=== PATIENT | male | born 1950 | race Caucasian/White ===

== ENCOUNTER 2023-01-18 13:22 | Outpatient (CLI) | payer OTHER, SELFPAY ==
--- NOTE | ~2023-01-18 | US_ITS ---
EXAMINATION: US retroperitoneal limited DATE: 01/18/2023 14:11 CDT INDICATION: Abdominal aortic aneurysm. TECHNIQUE: Grayscale, color Doppler, and pulsed Doppler images of the aorta and common iliac arteries were obtained. COMPARISON: CT dated 02/02/2017. FINDINGS: The proximal aorta measures 2.5 cm greatest sagittal dimension. The mid aorta measures 2.1 cm greates t sagittal dimension. The distal aorta measures 1.8 cm greatest sagittal dimension. The right common internal iliac artery measures 1.2 cm. The left common iliac artery measures 0.9 cm. IMPRESSION: 1. Normal caliber aorta without aneurysm. Reviewed, dictated and finalized at location L.
== END 2023-01-18 13:23 ==
LOC: MICIMG 13:25
DX: I71.40 Abdominal aortic aneurysm, without rupture, unspecified (principal)
CPT/HCPCS: 76775

== ENCOUNTER 2024-01-31 20:16 | Observation (INO) | payer OTHER, SELFPAY ==
[2024-01-31] VITALS (9 sets, daily range): BP systolic 83–112; BP diastolic 57–94; PULSE 46–168; RESP 17–22; TEMP 36.2–36.5; O2SAT 97–100; BMI 33.6
--- NOTE | ~2024-01-31 | XR_ITS ---
EXAMINATION: XR femur LT min 2V, XR tibia fibula LT 2V, XR knee LT min 4V DATE: 01/31/2024 21:34 INDICATION: Left leg injury TECHNIQUE: 1. AP and lateral views of the left femur were obtained on overlapping proximal and distal images. 2. AP, lateral and 2 oblique views of the left knee were obtained. 3. AP and lateral views of the left tibia and fibula were obtained on overlapping proximal and distal images. COMPARISON: None. FINDINGS: Old proximal diaphyseal fracture of the left femur which is fixed with a retrograde intramedullary ro d with distal interlocking screw and which is healed in essentially anatomic alignment there is addit ional fixation of a likely old healed medial malleolar fracture at the left ankle which is fixed with a cerclage wire and 5 pins, also in near-anatomic alignment. No acute fractures identified. 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 Uday-Stieda lesion with heterotopic ossification along the proximal medial colla teral ligament consistent with sequela of chronic medial collateral ligament sprain. And soft tissue swelling with subcutaneous edema throughout the left lower limb beginning at the mid thigh and extend ing through the calf to the ankle. There is increased density to the subcutaneous tissues medial to t he left knee suggestive of a hematoma. IMPRESSION: 1. Internal fixation for old healed fractures of the proximal left femoral diaphysis and of the media l malleolus of the left tibia. No acute osseous abnormality in the left femur, knee or lower leg. Reviewed, dictated and finalized at location A. IMPRESSION: 1. Internal fixation for old healed fractures of the proximal left femoral diap hysis and of the medial malleolus of the left tibia. No acute osseous abnormali ty in the left femur, knee or lower leg. IMPRESSION: 1. Internal fixation for old healed fractures of the proximal left femoral diap hysis and of the medial malleolus of the left tibia. No acute osseous abnormali ty in the left femur, knee or lower leg.
--- NOTE | ~2024-01-31 | XR_ITS ---
EXAMINATION: XR chest 1V portable DATE: 01/31/2024 21:34 INDICATION: Atrial fibrillation with rapid ventricular response TECHNIQUE: frontal view of the chest was obtained. COMPARISON: Chest radiograph dated 04/27/2013 FINDINGS: Asymmetric hazy opacity throughout the left hemithorax relative to the right likely related to some l eftward rotation of the patient. Mild curvilinear discoid atelectasis at the right lung base projecti ng over the right hemidiaphragm no other airspace opacities, pulmonary edema, pleural effusion or pne umothorax. Mild cardiomegaly. Unchanged single lead cardiac pacemaker/defibrillator with lead tip pro jecting over the region of the apex of the right ventricle. There is a second disconnected right vent ricular lead. There is some lucency underlying the right hemidiaphragm without evident colonic interp osition on CT the abdomen and pelvis dated 02/02/2017 which raises some concern for free intraperitone al gas. IMPRESSION: 1. Mild curvilinear right basilar discoid atelectasis. No other acute cardiopulmonary disease. 2. Lucency underlying the right hemidiaphragm of indeterminate etiology which raises some concern for free intraperineal gas. Correlate clinically and would recommend obstructive series with upright and left lateral decubitus views for further evaluation. 3. Cardiomegaly. Reviewed, dictated and finalized at location A. IMPRESSION: 1. Mild curvilinear right basilar discoid atelectasis. No other acute cardiopul monary disease. 2. Lucency underlying the right hemidiaphragm of indeterminate etiology which r aises some concern for free intraperineal gas. Correlate clinically and would r ecommend obstructive series with upright and left lateral decubitus views for f urther evaluation. 3. Cardiomegaly.
[2024-01-31 20:51] LABS: Basophils Absolute Auto 0.1 K/mm3 (0.0-0.1); Basophils Percent Auto 0.5 % (0.2-1.2); Eosinophils Absolute Auto 0.3 K/mm3 (0-0.3); Eosinophils Percent Auto 1.7 % (0-4.4); Hematocrit 45.7 % (42.0-52.0); Hemoglobin 15.4 g/dL (14.0-18.0); Immature Granulocyte Absolute 0.09 K/mm3 (0.00-0.031); Immature Granulocyte Percent A 0.6 % (0-0.5); Lymphocytes Absolute Auto 1.86 K/mm3 (0.9-3.2); Lymphocytes Percent Auto 12.6 % (18.3-44.2); Mean Corpuscular HGB Conc 33.7 g/dl (32-36); Mean Corpuscular Hemoglobin 31.6 pg (26-34); Mean Corpuscular Volume 93.8 fl (80-100); Mean Platelet Volume 11.2 fl (7.4-10.4); Monocytes Absolute Auto 1.1 K/mm3 (0.1-0.6); Monocytes Percent Auto 7.4 % (2.6-8.5); Neutrophils Absolute Auto 11.4 K/mm3 (1.3-6.7); Neutrophils Percent Auto 77.2 % (45.5-73.1); Platelet Count Result 188 k/mm3 (150-375); Red Blood Count 4.87 M/mm3 (4.6-6.20); Red Cell Distribution Width 15.3 % (11.5-14.5); White Blood Count 14.8 K/mm3 (4.5-10.0)
--- NOTE | 2024-01-31 20:56 | PC.NURSE ---
EDP DR. DIANA MIDDLETON 1MG VERSED IN CASE OF CARDIOVERSION. EDP VORB 500ML BOLUS OF NORMAL SALINE IV FLUIDS. ORDER ENTERED BY THIS RN.
[2024-01-31] MEDS: SODIUM CHLORIDE 0.9% IV 500 ML 999 ML IV CONT (20:58)
[2024-01-31] MEDS: MIDAZOLAM HCL (*CRX) 2 MG/2 ML VIAL 1 MG IV PUSH (21:03)
[2024-01-31] MEDS: SODIUM CHLORIDE 0.9% IV 1,000 ML 999 ML IV CONT (21:03)
[2024-01-31 21:04] LABS: INR 1.3; Prothrombin Time 16.6 Seconds (11.1-14.7)
[2024-01-31] MEDS: dilTIAZem HCl INJ 25 MG/5 ML VIAL 20 MG IV PUSH (21:04)
[2024-01-31 21:05] LABS: Partial Thromboplastin Time 26.7 Seconds (22.3-36.8)
--- NOTE | 2024-01-31 21:09 | ECG_ITS ---
SEE SCANNED COPY FOR CONFIRMED REPORT MTDD
[2024-01-31 21:12] LABS: Alanine Aminotransferase 24 U/L (6-50); Albumin Level 4.5 g/dL (3.5-5.1); Alkaline Phosphatase 85 U/L (38-126); Anion Gap 9 mmol/L (4-12); Aspartate Amino Transferase 35 U/L (17-59); Bilirubin,Total 2.1 mg/dL (0.2-1.3); Blood Urea Nitrogen 28 mg/dL (9-20); Calcium 8.7 mg/dL (8.4-10.2); Carbon Dioxide 25 mmol/L (22-30); Chloride 99 mmol/L (98-107); Estimated CRCL calculation 40 ml/min; Estimated Glomerular Filt Rate 35; Glucose 116 mg/dL (65-110); Magnesium 1.6 mg/dL (1.6-2.3); Potassium 4.4 mmol/L (3.4-5.0); Sodium 133 mmol/L (137-145)
--- NOTE | 2024-01-31 21:12 | ED.CHESTPAIN ---
HPI - Chest Pain General Chief Complaint: Chest Pain Stated Complaint: chest pain Time Seen by Provider: 01/31/24 20:23 History of Present Illness HPI narrative: Patient is a 73-year-old male who presents to the emergency department this evening complaining of a syncopal episode. Patient states that he was in his when he syncopized and then fell out of his car and then his ran over his left knee. Patient states that he has put weight on his left knee. Denies hitting his head, denies any loss of consciousness. Patient admits that he does have a history of atrial fibrillation and does take warfarin. Patient denies any chest pain at this time, he states that he does get some pressure from time to time but nothing he is too concerned about. He denies any nausea or vomiting, any abdominal pain, and admits to mild left knee pain. Patient does have a hematoma to the medial aspect of her left leg. No additional symptoms or concerns at this time. Related Data Allergies Allergy/AdvReac Type Severity Reaction Status Date / Time lidocaine Allergy Unknown Verified 10/15/11 12:02 lorazepam Allergy Unknown Verified 10/15/11 12:02 Review of Systems Review of Systems: All systems are reviewed and are negative unless stated otherwise in the HPI. [facility] Family History Family History Father Family history of heart disease in male family member before age 55 Acute myocardial infarction Social History Social History Smoking end date: 09/12/90 Alcohol intake: never Exam Narrative: General: Alert, awake, afebrile, in no acute distress. HEENT: PERRL, no rhinorrhea, no post nasal drip, oropharynx clear. Cardiovascular: Regular rate and rhythm, no murmurs, rubs or gallops, 1+ pitting edema. Respiratory: Clear to auscultation bilaterally, no tachypnea, no wheezing, no rhonchi, no rubs, no respiratory distress. Abdomen: Soft, nontender, nondistended, no rebound, no guarding, no peritoneal signs. Musculoskeletal: Large hematoma to medial left knee, intact left lower extremity hip flexion and knee extension, no deformity noted, patient is neurovascularly intact, compartments soft and compressible. Skin: No rashes or petechia, no signs of infection. Neurological: Alert and oriented to person, place, and time. Follows all commands. No focal deficits, speech is clear and fluent. Course Vital Signs Vital signs: Vital Signs Temperature 97.7 F 01/31/24 20:18 Pulse Rate 46 L 01/31/24 20:18 Respiratory Rate 17 01/31/24 20:18 Blood Pressure 110/94 H 01/31/24 20:18 Pulse Oximetry 98 01/31/24 20:18 Oxygen Delivery Room Air 01/31/24 20:18 Temperature 97.7 F 01/31/24 20:18 Pulse Rate 82 01/31/24 22:02 Respiratory Rate 22 H 01/31/24 22:02 Blood Pressure 109/87 01/31/24 22:02 Pulse Oximetry 100 01/31/24 22:02 Oxygen Delivery Room Air 01/31/24 20:49 MDM - Chest Pain MDM Narrative Medical decision making narrative: The patient was evaluated by myself in the emergency department. History is obtained from patient who is an independent historian and physical exam was performed. External medical records were reviewed at this time. IV was established and pertinent tests were ordered. EKG was obtained which revealed atrial fibrillation with RVR rate of 172 beats per minute. No ST changes, T wave inversions or evidence of acute ischemia within the limitation of the heart rate. EKG was independently interpreted by me and is currently pending official cardiology read. Patient was administered a 500 cc IV fluid bolus with normal saline. At this time, verbal consent was obtained from patient to perform cardioversion. Patient was administered 1 mg of IV Versed cardioverted at 200 joules, however, patient remained in atrial fibrillation. At this time repeat blood pressure did improve to 110 systolic and pa
--- NOTE | 2024-01-31 21:14 | PC.NURSE ---
EDP DR ORTIZ AT BEDSIDE AND VERBAL ORDERED FOR PT TO RECIEVE 1MG VERSED FOR CARDIOVERSION. 1MG VERSED GIVEN IVP. EDP DR. ORTIZ CARDIOVERTED PT W 200J. PT STILL IN AFIB W RATE OF 140S. PT AOX4 BUT DROWSY. EDP DR ORTIZ VORB PT TO RECIEVE 4MG CARDIZEM. CARDIZEM GIVEN IVP. PT HR AFIB 70S. REPEAT EKG ORDERED AND PERFORMED. PT RESPONDING WELL TO TREATMENT.
[2024-01-31 21:24] LABS: NT Pro B Type Natriuretic Pept 2040 pg/mL (19.9-100); Troponin I < 0.012 ng/mL (0.000-0.034)
[2024-01-31] MEDS: dilTIAZem 100 MG/100 ML 100 MG/100 ML BAG IV CONT (21:42)
[2024-01-31 21:55] LABS: Creatine Kinase 277 U/L (55-170)
--- NOTE | 2024-01-31 22:02 | PM.IMHP ---
H&P: HPI History of Present Illness Date/Time: 01/31/24 22:02 Chief Complaint: chest pain she had shortness of breath Narrative: 73-year-old male with history of congestive heart failure history of atrial fibrillation came to emergency room complaining of some dizziness and syncope like symptoms. Patient stated he felt syncope like symptoms and fell out of his car he also ended up hitting his left knee with some hematoma patient currently on warfarin did not hit his head denied loss of consciousness patient was noted of having rapid atrial fib. No chest pain at the time of examination no chest pressure no nausea vomiting diarrhea no hematemesis hemoptysis. Finish denies any urgency frequency of urination no flu-like symptoms. History of ICD pacemaker which was tested a few days ago once patient and updating a door edge at the site of the pacemaker with no injury. Patient was told by the bilingual sales representative and the pacemaker has not seen any changes but there might be a small crack in the device PMFSH Family History Family History Father Family history of heart disease in male family member before age 55 Acute myocardial infarction Social History Social History Smoking end date: 09/12/90 Alcohol intake: never Meds Home Medications and Allergies Allergies Allergy/AdvReac Type Severity Reaction Status Date / Time lidocaine Allergy Unknown Verified 10/15/11 12:02 lorazepam Allergy Unknown Verified 10/15/11 12:02 Vital Signs Vital Signs - 24 hr 01/31/24 20:18 01/31/24 20:49 01/31/24 20:50 Temperature 36.5 C Pulse Rate 46 L 148 H Respiratory Rate 17 17 Blood Pressure 110/94 H 83/57 L Pulse Oximetry 98 97 100 Oxygen Delivery Room Air Room Air 01/31/24 20:50 01/31/24 21:09 01/31/24 21:42 Temperature Pulse Rate 148 H 79 92 Respiratory Rate Blood Pressure 104/68 Pulse Oximetry Oxygen Delivery 01/31/24 21:44 Temperature Pulse Rate 84 Respiratory Rate 20 Blood Pressure 104/68 Pulse Oximetry 97 Oxygen Delivery Exam Narrative: GENERAL: Well appearing, no acute distress. HEAD: Normocephalic, atraumatic. NECK: Supple. No adenopathy, no masses. RESPIRATORY: respirations nonlabored. , no rales, wheezing. CARDIOVASCULAR: IRRegular rate and rhythm without murmurs, ICD in the chest wall . Peripheral pulses 2+ and equal bilaterally. ABDOMINAL: Soft, nontender, nondistended, no hepatosplenomegaly. Normoactive BS. MUSCULOSKELETAL: left knee hematoma and tenderness on exam left knee effusion SKIN: Warm, dry, NEURO: A&O X3. Moves all extremities H&P: Results Labs Labs: Short CBC 01/31/24 Range/Units 20:41 WBC 14.8 H (4.5-10.0) K/mm3 Hgb 15.4 (14.0-18.0) g/dL Hct 45.7 (42.0-52.0) % Plt Count 188 (150-375) k/mm3 BMP 01/31/24 20:41 Sodium 133 L Potassium 4.4 Chloride 99 Carbon Dioxide 25 BUN 28 H Creatinine 1.90 H Glucose 116 H Calcium 8.7 Cardiac Enzymes 01/31/24 01/31/24 Range/Units 20:41 23:40 Total Creatine Kinase 277 H (55-170) U/L Troponin I < 0.012 Cancelled (0.000-0.034) ng/mL Liver Function 01/31/24 Range/Units 20:41 Total Bilirubin 2.1 H (0.2-1.3) mg/dL AST 35 (17-59) U/L ALT 24 (6-50) U/L Alkaline Phosphatase 85 (38-126) U/L Albumin 4.5 (3.5-5.1) g/dL Assessment and Plan Assessment and plan (1) Paroxysmal A-fib: Code(s): I48.0 - Paroxysmal atrial fibrillation Status: Acute (2) CHF (congestive heart failure), NYHA class II: Code(s): I50.9 - Heart failure, unspecified Status: Acute (3) MAMADOU (acute kidney injury): Code(s): N17.9 - Acute kidney failure, unspecified Status: Acute Plan Heart failure with reduced ejection fraction. EKG reviewed Chest x-ray review EF of 20% as per patient Lipid panel, TSH,darell
[2024-01-31] MEDS: ENOXAPARIN 120 MG/0.8 ML SYRINGE 108 MG SUB-Q (22:45)
--- NOTE | 2024-01-31 23:18 | ADMGEN ---
2248 This patient, Jose Alejandro Palomares, was admitted to IMU Room 206-02. Patient/family oriented to hospital policies and general routines including ID bracelet, bed and alarms, visiting hours, pain management, procedures, bathroom and other care routines, personal items, smoking policy, room service/diet, and visiting hours. Information on how to activate the Rapid Response Team has been discussed. Patient/Family are encouraged to report perceived risks to care and to ask questions if they do not understand what they are told or what they should do.
[2024-02-01] VITALS (21 sets, daily range): BP systolic 93–125; BP diastolic 47–71; PULSE 56–85; RESP 18–28; TEMP 36.3–36.6; O2SAT 93–100
[2024-02-01] MEDS: ACETAMINOPHEN 325 MG TABLET PO ×2 (00:28→21:57)
[2024-02-01] MEDS: clonazePAM (*CRX) 0.5 MG TABLET 2 MG PO ×2 (00:30→21:56)
[2024-02-01] MEDS: QUEtiapine FUMARATE 25 MG TABLET PO ×2 (00:30→21:57)
[2024-02-01 00:44] LABS: Basophils Percent Auto 0.3 % (0.2-1.2); Eosinophils Absolute Auto 0.1 K/mm3 (0-0.3); Eosinophils Percent Auto 0.7 % (0-4.4); Hemoglobin 12.9 g/dL (14.0-18.0); Immature Granulocyte Absolute 0.07 K/mm3 (0.00-0.031); Immature Granulocyte Percent A 0.6 % (0-0.5); Immature Platelet Fraction Pct 8.9 % (0.9-11.2); Lymphocytes Absolute Auto 1.32 K/mm3 (0.9-3.2); Mean Corpuscular HGB Conc 33.1 g/dl (32-36); Mean Corpuscular Hemoglobin 31.5 pg (26-34); Mean Corpuscular Volume 95.4 fl (80-100); Mean Platelet Volume 11.5 fl (7.4-10.4); Monocytes Absolute Auto 0.8 K/mm3 (0.1-0.6); Monocytes Percent Auto 6.8 % (2.6-8.5); Neutrophils Absolute Auto 9.6 K/mm3 (1.3-6.7); Neutrophils Percent Auto 80.6 % (45.5-73.1); Platelet Count Result 137 k/mm3 (150-375); Red Blood Count 4.09 M/mm3 (4.6-6.20)
[2024-02-01 00:57] LABS: Alanine Aminotransferase 21 U/L (6-50); Albumin Level 3.6 g/dL (3.5-5.1); Alkaline Phosphatase 72 U/L (38-126); Anion Gap 6 mmol/L (4-12); Aspartate Amino Transferase 28 U/L (17-59); Bilirubin,Total 2.2 mg/dL (0.2-1.3); Blood Urea Nitrogen 26 mg/dL (9-20); Calcium 8.1 mg/dL (8.4-10.2); Carbon Dioxide 22 mmol/L (22-30); Chloride 104 mmol/L (98-107); Cholesterol 133 mg/dL (0-200); Estimated CRCL calculation 54 ml/min; Estimated Glomerular Filt Rate 50; Glucose 107 mg/dL (65-110); HDL Direct 37 mg/dL; Potassium 3.9 mmol/L (3.4-5.0); Sodium 132 mmol/L (137-145); Triglycerides 63 mg/dL (<150)
[2024-02-01 01:06] LABS: Troponin I < 0.012 ng/mL (0.000-0.034)
[2024-02-01 01:07] LABS: LDL Cholesterol Direct 77 mg/dL
[2024-02-01 01:24] LABS: Free T4 Free Thyroxine 1.26 ng/mL (0.78-2.19)
[2024-02-01 04:16] LABS: Troponin I < 0.012 ng/mL (0.000-0.034)
[2024-02-01] MEDS: METOPROLOL SUCCINATE EXT REL 50 MG TABCR PO (09:44)
[2024-02-01] MEDS: PANTOPRAZOLE 40 MG TABLET PO (09:44)
[2024-02-01] MEDS: ATORVASTATIN 40 MG TABLET PO (09:45)
[2024-02-01] MEDS: ENOXAPARIN 120 MG/0.8 ML SYRINGE 108 MG SUB-Q ×2 (09:45→21:57)
--- NOTE | 2024-02-01 11:52 | PM.CNCAR ---
Assessment and Plan Assessment and plan (1) Ischemic cardiomyopathy: Code(s): I25.5 - Ischemic cardiomyopathy Status: Acute Plan This is a 73-year-old man with chronic coronary artery disease, previous myocardial infarction reportedly low ejection and previous percutaneous revascularization he also reports a history of chronic atrial fibrillation and a chronically implanted biventricular ICD with all of this is followed at [facility]. He entered this hospital after having a syncopal episode yesterday falling by his mailbox. Apparently he was tachycardic with a heart rate in the 170s which was shocked electrically in the emergency room. Unfortunately there were no rhythm strips of this kept on the chart for my review. Given his substrate of a significant ischemic cardiomyopathy it is most likely that his tachycardia risk represented VT which was terminated electrically. I am not sure how his ICD is programmed as to why the device did not treat his arrhythmia prior to being cardioverted in the ED. he is currently in atrial fibrillation with a controlled response and his atrial fibrillation is chronic by his history. I would recommend continuing his current guideline directed medical therapy, try to figure out what his dose of Entresto is an order that as well. I will ask for the [employer] inbound call center representative to come here and interrogate the device to provide some information as to the programming of his device as to why it did not terminate VT if that was the arrhythmia yesterday. We will await that information but at this point he does not need any additional cardiac evaluation here. If electrophysiology input becomes necessary he should be transferred to his established physicians at [facility] who been treating him for many years Hair Augustin MD [facility] History of Present Illness History of Present Illness Consult date/time: 02/01/24 11:52 Reason For Visit: AFib RVR Narrative: This is a 73-year-old man I am seeing at the request of the hospitalist the stated reason for consultation is AFib with rapid ventricular response. Patient is unknown to me and unknown to physicians here at [facility] before this. He was brought to the hospital yesterday apparently because of a syncopal episode that occurred outside of his home that resulted in injury to his leg and some hematoma in his thigh. The patient states that he was in his car coming home from running errands he stopped his cart the mailbox he left the door open to stay step out and get his mail. He says shortly after that he had a fall and lost consciousness he thinks briefly. There were no witnesses to this event he woke up spontaneously and was concerned about his leg in terms of the injury. He was brought to the hospital for further evaluation. According to the chart that is in the emergency room he was felt to be in atrial fibrillation with a rapid heart rate in the 170s. He was electrically cardioverted and the resultant rhythm was atrial fibrillation with a controlled ventricular response. He felt better after that and was admitted to the hospital. He has no current complaints at this time. He has a long history of ischemic heart disease and receives his cardiology care at [facility]. He states that his history includes a significant myocardial infarction in the past, a low ejection fraction and he thinks about 5 or 6 previously deployed coronary stents. He has chronic atrial fibrillation he states that physicians at that hospital in the past have try to restore sinus rhythm which was unsuccessful. He sees both cellar pumper and carbonator at that institution. He has a chronically implanted [employer] biventricular ICD. He says he was in his carbonator office for a follow-up visit within the last several days and was told that things were stable. He is being maintained on guideline directed medical therapy for his ischemic ca
[2024-02-01] MEDS: MORPHINE SULFATE (*CRX) 2 MG/ML INJ IV PUSH (13:52)
--- NOTE | 2024-02-01 18:25 | PM.IMPN ---
Progress Note: A&P Assessment and Plan (1) Paroxysmal A-fib: Code(s): I48.0 - Paroxysmal atrial fibrillation Status: Acute (2) CHF (congestive heart failure), NYHA class II: Code(s): I50.9 - Heart failure, unspecified Status: Acute (3) MAMADOU (acute kidney injury): Code(s): N17.9 - Acute kidney failure, unspecified Status: Acute Plan Heart failure with reduced ejection fraction. EKG reviewed Chest x-ray review EF of 20% as per patient Lipid panel, TSH,liver function test, TTE in a.m. cardiology consult Optimize Philip inhibitors and beta-blockers Daily weights monitor BNP Antiplatelet & Statin therapy Loop diuretics as indicate Patient educated about titrating diuretics at home based on weight blood pressure and symptoms. Optimize blood pressure < 130/80 Fall risk assessment Pneumonia and flu vaccine advised atrial fibrillation with RVR currently on Cardizem drip 5 mics. Monitor blood pressure. Continue anticoagulation with warfarin monitor PT INR. 1.3. Will start patient on full dose of Lovenox. Platelet count 188 Cardiology consulted present Check TSH. Optimize beta-rk. Monitor troponins Cardiology consulted: Apparently he was tachycardic with a heart rate in the 170s which was shocked electrically in the emergency room.? Unfortunately there were no rhythm strips of this kept on the chart for my review.? Given his substrate of a significant ischemic cardiomyopathy it is most likely that his tachycardia risk represented VT which was terminated electrically.? I am not sure how his ICD is programmed as to why the device did not treat his arrhythmia prior to being cardioverted in the ED. he is currently in atrial fibrillation with a controlled response and his atrial fibrillation is chronic by his history.? I would recommend continuing his current guideline directed medical therapy, try to figure out what his dose of Entresto is an order that as well.? I will ask for the [employer] pharmaceutical service representative to come here and interrogate the device to provide some information as to the programming of his device as to why it did not terminate VT if that was the arrhythmia yesterday.? We will await that information but at this point he does not need any additional cardiac evaluation here.?? MAMADOU cause due to diuretic use and dehydration serum creatinine 1.9 nephrology consulted Avoid nephrotoxic drugs. Monitor antihypertensive drug therapy. Avoid NSAIDs. Routine CMP monitoring GFR. Monitor electrolytes especially potassium. Pharmacy does medications. left knee effusion and hematoma ice and leg elevation. Monitor for any infection. Early ambulation Time Spent With Patient Time with patient: 25 - 35 minutes Subjective Date/time seen: 02/01/24 18:25 Interval history: Seen and examined; being evaluated and managed for tachyarrhythmias and A-fib Exam Narrative: GENERAL: Well appearing, no acute distress. HEAD: Normocephalic, atraumatic. NECK: Supple. No adenopathy, no masses. RESPIRATORY: respirations nonlabored. , no rales, wheezing. CARDIOVASCULAR: IRRegular rate and rhythm without murmurs, ICD in the chest wall . Peripheral pulses 2+ and equal bilaterally. ABDOMINAL: Soft, nontender, nondistended, no hepatosplenomegaly. Normoactive BS. MUSCULOSKELETAL: left knee hematoma and tenderness on exam left knee effusion SKIN: Warm, dry, NEURO: A&O X3. Moves all extremities Objective Data Vital Signs Vital Signs: Vital Signs - 24 hr 01/31/24 20:18 01/31/24 20:49 01/31/24 20:50 Temperature 97.7 F Pulse Rate 46 L 148 H Respiratory Rate 17 17 Blood Pressure 110/94 H 83/57 L Pulse Oximetry 98 97 100 Oxygen Delivery Room Air Room Air 01/31/24 20:50 01/31/24 21:09 01/31/24 21:42 Temperature Pulse Rate 148 H 79 92 Respiratory Rate Blood Pressure 104/68 Pulse Oximetry Oxygen Delivery
[2024-02-02] VITALS (12 sets, daily range): BP systolic 110–125; BP diastolic 65–82; PULSE 82–104; RESP 18–20; TEMP 36.1–36.8; O2SAT 97–100
[2024-02-02 04:45] LABS: Basophils Percent Auto 0.6 % (0.2-1.2); Eosinophils Absolute Auto 0.3 K/mm3 (0-0.3); Hematocrit 36.2 % (42.0-52.0); Immature Granulocyte Absolute 0.03 K/mm3 (0.00-0.031); Immature Granulocyte Percent A 0.4 % (0-0.5); Immature Platelet Fraction Pct 9.6 % (0.9-11.2); Lymphocytes Absolute Auto 2.34 K/mm3 (0.9-3.2); Lymphocytes Percent Auto 32.6 % (18.3-44.2); Mean Corpuscular HGB Conc 33.1 g/dl (32-36); Mean Corpuscular Hemoglobin 31.3 pg (26-34); Mean Corpuscular Volume 94.5 fl (80-100); Monocytes Absolute Auto 0.6 K/mm3 (0.1-0.6); Monocytes Percent Auto 7.8 % (2.6-8.5); Neutrophils Absolute Auto 3.9 K/mm3 (1.3-6.7); Neutrophils Percent Auto 54.6 % (45.5-73.1); Platelet Count Result 116 k/mm3 (150-375); Red Blood Count 3.83 M/mm3 (4.6-6.20); Red Cell Distribution Width 14.9 % (11.5-14.5); White Blood Count 7.2 K/mm3 (4.5-10.0)
[2024-02-02 05:03] LABS: Alanine Aminotransferase 21 U/L (6-50); Albumin Level 3.6 g/dL (3.5-5.1); Alkaline Phosphatase 85 U/L (38-126); Anion Gap 6 mmol/L (4-12); Aspartate Amino Transferase 28 U/L (17-59); Bilirubin,Total 1.5 mg/dL (0.2-1.3); Blood Urea Nitrogen 18 mg/dL (9-20); Calcium 8.7 mg/dL (8.4-10.2); Carbon Dioxide 21 mmol/L (22-30); Chloride 108 mmol/L (98-107); Estimated CRCL calculation 82 ml/min; Estimated Glomerular Filt Rate > 60; Glucose 88 mg/dL (65-110); Potassium 3.6 mmol/L (3.4-5.0); Sodium 135 mmol/L (137-145)
[2024-02-02] MEDS: ENOXAPARIN 120 MG/0.8 ML SYRINGE 108 MG SUB-Q (10:10)
[2024-02-02] MEDS: PANTOPRAZOLE 40 MG TABLET PO (10:11)
[2024-02-02] MEDS: ATORVASTATIN 40 MG TABLET PO (10:11)
[2024-02-02] MEDS: METOPROLOL SUCCINATE EXT REL 50 MG TABCR PO (10:11)
--- NOTE | 2024-02-02 12:37 | PM.PNCARD ---
Progress Note: A&P Assessment and Plan (1) Ischemic cardiomyopathy: Code(s): I25.5 - Ischemic cardiomyopathy Status: Acute Assessment and Plan: Reportedly has severe ischemic cardiomyopathy with ICD in place. ICD interrogation was done and showed that his device inappropriately delivered therapy for rapid Afib. Device settings were adjusted, but ultimately patient needs a lead extraction per [employer] rep. Patient has an appointment with his EP next week where scheduling this will be discussed. In regard to his cardiomyopathy, he should continue GDMT with Toprol XL, spironolactone, and Entresto which reportedly is a home medication that was not included on his medication reconciliation here in the hospital. Not in heart failure. Discussed the importance of following up with his EP next week as scheduled. OK for discharge from the hospital from a cardiac perspective. Subjective Date/time seen: 02/02/24 12:37 Interval history: Cardiology follow up for syncope, cardiomyopathy He feels well today and has no complaints. Reviewed results of device interrogation and recommendations to follow up with his EP next week. Review of Systems Constitutional: Constitutional: Reports no additional constitutional complaints Eyes: Eyes: Reports no additional eye complaints ENT: Reports system reviewed and no additional complaints, except as documented Cardiovascular: Cardiovascular: Reports as per HPI and Reports dyspnea on exertion Respiratory: Respiratory: Reports dyspnea on exertion Gastrointestinal: Gastrointestinal: Reports no additional gastrointestinal complaints Musculoskeletal: Musculoskeletal: Reports no additional musculoskeletal complaints Integumentary/Breasts: Skin/Breast: Reports system reviewed and no additional complaints, except as docu Neurologic: Reports system reviewed and no additional complaints, except as documented Endocrine: Endocrine: Reports no additional endocrine complaints Hematologic/Lymphatic: Hematologic/Lymphatic: Reports no additional hematologic/lymphatic complaints Allergic/Immunologic: Allergic/Immunologic: Reports no additional allergic/immunologic complaints Exam Const: General: comfortable and no acute distress HENMT: Mouth: Yes moist mucous membranes Eyes: Sclera: sclerae normal Neck: Neck: supple and no JVD Resp: Effort & Inspection: normal respiratory effort Auscultation: clear to auscultation bilaterally Cardio: Rate: regular rate Rhythm: abnormal rhythm irregularly irregular Heart sounds: no murmurs GI: Auscultation: normal bowel sounds Neuro: Other: Alert and oriented x3 Extrem: Other: Trivial pretibial edema adequate perfusion Objective Data Vital Signs Vital Signs: Vital Signs - 24 hr 02/01/24 14:00 02/01/24 16:00 02/01/24 16:00 Temperature 36.3 C L Pulse Rate 84 85 78 Respiratory Rate 20 Blood Pressure 100/49 L Pulse Oximetry 96 Oxygen Delivery 02/01/24 16:00 02/01/24 18:00 02/01/24 20:03 Temperature 36.4 C L Pulse Rate 72 80 Respiratory Rate 20 Blood Pressure 106/64 Pulse Oximetry 99 Oxygen Delivery Room Air 02/01/24 20:00 02/01/24 20:00 02/01/24 22:00 Temperature Pulse Rate 81 84 Respiratory Rate Blood Pressure Pulse Oximetry Oxygen Delivery Room Air 02/01/24 23:57 02/02/24 00:40 02/02/24 00:00 Temperature 36.5 C Pulse Rate 86 85 Respiratory Rate 20 Blood Pressure 110/65 Pulse Oximetry 98 Oxygen Delivery Room Air 02/02/24 01:50 02/02/24 04:00 02/02/24 04:00 Temperature Pulse Rate 82 90 Respiratory Rate Blood Pressure Pulse Oximetry Oxygen Delivery Room Air 02/02/24 04:36 02/02/24 06:00 02/02/24 08:55 Temperature 36.5 C 36.8 C Pulse Rate 90 85 102 H Respiratory Rate 20 20 Blood Pressure 116/80 125/73 Pulse Oximetry 97 100 Oxygen Delivery 02/02/24 12:04 Temperature 36.1 C L Pulse Rate 104 H
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
--- NOTE | 2024-02-02 13:45 | PC.NURSE ---
Pt. refused to keep his vehicle monitor technician on and to stay in his room. He is very unhappy with his care and his discharge order still not being in. I called Dr. Esparza and I asked if he knew when he would put the order in and he said no. Pt. notified that he can leave AMA if he doesn't wish to stay and wait for his discharge to be processed.
== END 2024-02-02 15:15 | disposition home or self-care (01) ==
LOC: ANHED 21:38 → ANHIMU 22:21
PROVIDERS: Admitting Provider Internal Medicine; Emergency Provider Emergency Medicine; Visit Provider Internal Medicine
DX: I48.0 Paroxysmal atrial fibrillation (principal); N17.9 Acute kidney failure, unspecified; I50.9 Heart failure, unspecified; I25.5 Ischemic cardiomyopathy; I25.2 Old myocardial infarction; I25.10 Atherosclerotic heart disease of native coronary artery without angina pectoris; S80.12XA Contusion of left lower leg, initial encounter; V09.9XXA Pedestrian injured in unspecified transport accident, initial encounter; Z95.810 Presence of automatic (implantable) cardiac defibrillator; Z79.01 Long term (current) use of anticoagulants
CPT/HCPCS: 36415; 71045; 73552; 73564; 73590; 80053; 80061; 82550; 83735; 83880; 84439; 84484; 85025; 85055; 85610; 85730; 93005; 96365; 96366; 96372; 96375; 99285; A9270; G0378; J1650; J2250; J2270; J7030; J7040

== ENCOUNTER 2024-02-10 02:35 | Emergency (ER) | payer OTHER, SELFPAY ==
[2024-02-10] VITALS (24 sets, daily range): BP systolic 89–128; BP diastolic 50–78; PULSE 72–100; RESP 15–26; TEMP 36.6; O2SAT 93–100
--- NOTE | ~2024-02-10 | XR_ITS ---
Portable chest x-ray Comparison: 01/31/2024 Clinical History: AICD discharge Findings: Lungs are clear, without focal consolidation or pleural effusion. Cardiomediastinal silho uette is stable, with pacemaker device. Bones and soft tissues are unremarkable. Impression: Clear lungs. Stable mild cardiomegaly with pacemaker device. Reviewed, dictated and finalized at location . Impression: Clear lungs. Stable mild cardiomegaly with pacemaker device.
--- NOTE | 2024-02-10 02:47 | ECG_ITS ---
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 Measurements Intervals [place] Rate: 82 P: 0 [place]: 0 QRS: 88 QRSD: 151 T: -56 QT: 370 QTc: 434 Interpretive Statements ATRIAL FIBRILLATION LEFT BUNDLE BRANCH BLOCK BASELINE ARTIFACT- I, III, AVL, V4 ABNORMAL ECG No previous ECG available for comparison Electronically Signed On 02-10-2024 08:39:52 CDT by Geronimo García D.O.
[2024-02-10] MEDS: ASPIRIN 81 MG CHEWABLE TABLET 324 MG PO (02:51)
[2024-02-10 03:02] LABS: Basophils Percent Auto 0.6 % (0.2-1.2); Eosinophils Absolute Auto 0.2 K/mm3 (0-0.3); Eosinophils Percent Auto 2.9 % (0-4.4); Hematocrit 32.5 % (42.0-52.0); Hemoglobin 10.8 g/dL (14.0-18.0); Immature Granulocyte Absolute 0.02 K/mm3 (0.00-0.031); Immature Granulocyte Percent A 0.3 % (0-0.5); Lymphocytes Absolute Auto 1.36 K/mm3 (0.9-3.2); Lymphocytes Percent Auto 20.7 % (18.3-44.2); Mean Corpuscular HGB Conc 33.2 g/dl (32-36); Mean Corpuscular Volume 99.4 fl (80-100); Mean Platelet Volume 10.5 fl (7.4-10.4); Monocytes Absolute Auto 0.5 K/mm3 (0.1-0.6); Monocytes Percent Auto 7.2 % (2.6-8.5); Neutrophils Absolute Auto 4.5 K/mm3 (1.3-6.7); Neutrophils Percent Auto 68.3 % (45.5-73.1); Platelet Count Result 200 k/mm3 (150-375); Red Blood Count 3.27 M/mm3 (4.6-6.20); Red Cell Distribution Width 18.8 % (11.5-14.5); White Blood Count 6.6 K/mm3 (4.5-10.0)
[2024-02-10 03:12] LABS: Alanine Aminotransferase 31 U/L (6-50); Albumin Level 4.3 g/dL (3.5-5.1); Alkaline Phosphatase 96 U/L (38-126); Anion Gap 9 mmol/L (4-12); Aspartate Amino Transferase 39 U/L (17-59); Bilirubin,Total 3.5 mg/dL (0.2-1.3); Blood Urea Nitrogen 27 mg/dL (9-20); Calcium 9.2 mg/dL (8.4-10.2); Carbon Dioxide 25 mmol/L (22-30); Chloride 104 mmol/L (98-107); Estimated Glomerular Filt Rate 43; Glucose 85 mg/dL (65-110); INR 1.4; Magnesium 1.8 mg/dL (1.6-2.3); Sodium 138 mmol/L (137-145)
[2024-02-10 03:13] LABS: Lactic Acid Reflex 1.8 mmol/L (0.7-2.0)
[2024-02-10 03:14] LABS: Partial Thromboplastin Time 33.6 Seconds (22.3-36.8)
[2024-02-10 03:23] LABS: NT Pro B Type Natriuretic Pept 3110 pg/mL (19.9-100); Troponin I 0.032 ng/mL (0.000-0.034)
[2024-02-10 03:25] LABS: Appearance Urine Clear (Clear); Bilirubin Urine Negative (Negative); Blood Urine Negative (Negative); Color Urine Yellow (Yellow); Glucose Urine UA Negative (Negative); Ketones Urine Negative (Negative); Leukocyte Esterase Ur Negative LEU/UL (Negative); Nitrate Urine Negative (Negative); Protein Urine Negative (Negative)
[2024-02-10 03:27] LABS: Add Urine Microscopic? NO
--- NOTE | 2024-02-10 05:20 | ED.GENADULT ---
HPI - General Adult General Chief complaint: Arrhythmia/Palpitations <Hector Valencia MD - Last Filed: 02/10/24 05:29> Stated complaint: defib fired <Hector Valencia MD - Last Filed: 02/10/24 05:29> Time Seen by Provider: 02/10/24 02:40 <Hector Valencia MD - Last Filed: 02/10/24 05:29> History of Present Illness HPI narrative: patient is 73-year-old gentleman who presents emergency department with chief complaint of AICD discharge. The patient reports that he was resting and had 2 episodes of his defibrillator discharging. Patient reports that he has had issues with feedback from a lead and is followed at [facility] by Dr. Ashraf. The patient states that the shocks were exquisitely painful for reports that he was feeling fine prior to the episode had no chest pain no palpitations <Hector Valencia MD - Last Filed: 02/10/24 05:29> Related Data Home medications: Home Medications Medication Instructions Recorded Confirmed atorvastatin 80 mg tablet 80 mg PO DAILY 01/31/24 01/31/24 carvedilol 25 mg tablet 50 mg PO BID 01/31/24 01/31/24 clonazepam 2 mg tablet 2 mg PO HS 01/31/24 01/31/24 escitalopram oxalate 10 mg tablet 10 mg PO DAILY 01/31/24 01/31/24 isosorbide mononitrate 30 mg 30 mg PO DAILY 01/31/24 01/31/24 tablet,extended release 24 hr pantoprazole 40 mg tablet,delayed 40 mg PO DAILY 01/31/24 01/31/24 release quetiapine 25 mg tablet 25 mg PO HS 01/31/24 01/31/24 spironolactone 25 mg tablet 25 mg PO DAILY 01/31/24 01/31/24 torsemide 20 mg tablet 40 mg PO DAILY 01/31/24 01/31/24 warfarin 1 mg tablet 6 mg PO DAILY 01/31/24 01/31/24 <Hector Valencia MD - Last Filed: 02/10/24 05:29> Allergies/adverse reactions: Allergies Allergy/AdvReac Type Severity Reaction Status Date / Time lidocaine Allergy Unknown Anaphylaxis Verified 02/10/24 02:49 lorazepam Allergy Unknown Confusion Verified 02/10/24 02:49 <Hector Valencia MD - Last Filed: 02/10/24 05:29> Review of Systems Review of Systems: A 10 system review of systems was completed on the patient and is negative except for what is stated in the HPI. Nursing and ancillary documentation was reviewed. <Hector Valencia MD - Last Filed: 02/10/24 05:29> PMFSH Family History Family History: Family History Father Family history of heart disease in male family member before age 55 Acute myocardial infarction <eHctor Valencia MD - Last Filed: 02/10/24 05:29> Social History Social History: Social History Smoking status: Former smoker Smoking end date: 09/12/90 Alcohol intake: never Substance use: never Do You Feel Safe in your Home?: Yes Lack of Transportation: No Lack of Food: Never True Current Housing: I Have Housing Concerned About Future Housing: No Difficulty Paying Gas/Electric Bills: No Difficulty Paying for Meds: No Currently Unemployed: No Education: Decline to Answer Difficulty w/ Childcare or Family Care: No Spiritual care concerns: No <Hector Valencia MD - Last Filed: 02/10/24 05:29> Exam Narrative: GENERAL: Well-appearing, well-nourished, and in no acute distress. HEAD: Normocephalic, atraumatic. EYES: PERRLA and EOMI. ENT: Nares clear, no rhinorrhea or epistaxis. Mucous membranes moist. NECK: Supple. CHEST: Clear to auscultation. No respiratory distress. HEART: Regular rate and rhythm. No murmur heard. Normal peripheral pulses. ABDOMEN: Soft, nontender, nondistended, normal active bowel sounds. EXTREMITIES: Normal range of motion. No edema. SKIN: Warm, dry, no rash. NEURO: No focal deficits. Alert and oriented x3. PSYCH: Normal mood and affect. <Hector Valencia MD - Last Filed: 05/31/24 05:29> Course Course Emergency Course: 13:00 -
--- NOTE | 2024-02-10 06:05 | ECG_ITS ---
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 Measurements Intervals [place] Rate: 95 P: 0 [place]: 0 QRS: 91 QRSD: 132 T: -65 QT: 375 QTc: 472 Interpretive Statements ATRIAL FIBRILLATION LEFT BUNDLE BRANCH BLOCK BASELINE ARTIFACT- I, II, AVR, V1, V4-V5 ABNORMAL ECG Compared to ECG 02/10/2024 02:47:43 NO SIGNIFICANT CHANGE Electronically Signed On 02-10-2024 14:43:15 CDT by Geronimo García D.O.
[2024-02-10 06:33] LABS: Troponin I 0.031 ng/mL (0.000-0.034)
--- NOTE | 2024-02-10 10:00 | PC.NURSE ---
called Temi Rodriguez pt's daughter per his request - Informed her that her father is in the ER due to his pacemaker malfunction.
--- NOTE | 2024-02-10 11:57 | PC.NURSE ---
[facility] on pt now.
--- NOTE | 2024-02-10 14:20 | PC.NURSE ---
Lifevest placed by outbound sales representative. patient states understanding.
== END 2024-02-10 14:25 | disposition home or self-care (01) ==
PROVIDERS: Emergency Medicine; Emergency Provider Family Medicine
DX: T82.110A Breakdown (mechanical) of cardiac electrode, initial encounter (principal); Z79.01 Long term (current) use of anticoagulants; Z87.891 Personal history of nicotine dependence; Y71.2 Prosthetic and other implants, materials and accessory cardiovascular devices associated with adverse incidents
CPT/HCPCS: 36415; 71045; 80053; 81003; 83605; 83735; 83880; 84484; 85025; 85610; 85730; 93005; 99284; A9270

== ENCOUNTER 2024-02-18 00:32 | Emergency (ER) | payer OTHER, SELFPAY ==
[2024-02-18] VITALS (9 sets, daily range): BP systolic 100–126; BP diastolic 67–98; PULSE 87–118; RESP 18–30; TEMP 37.1; O2SAT 98–100
--- NOTE | ~2024-02-18 | CT_ITS ---
CT LE LT w con DATE: 02/18/2024 02:51 INDICATION: Left lower extremity hematoma, swelling. Known left leg wound treated approximately 2.5 w eeks ago. The wound is now bleeding again. TECHNIQUE: Axial images were performed from the left hip through the distal lower extremity with 100 CC Omnipaque 350 intravenous contrast material. Sagittal and coronal reconstructions. Exam dose: 2506.06 mGy-cm total exam DLP. COMPARISON: 01/31/2024 left femur, knee and tibia/fibular FINDINGS: Left fat-containing inguinal hernia. Intramedullary cynthia of the femur for internal fixation of an old proximal left femoral shaft fracture, with rather exuberant chronic callus formation and some heterotopic soft tissue ossification surroun ding the fracture site. There are multiple fixation screws through the medial malleolus cerclage wire. Polyarticular osteoarthritis involving left hip, knee, ankle and foot. There is extensive subcutaneous edema from the left hip throughout the left lower extremity, with a l arge hematoma in the anteromedial distal thigh extending below the knee, measuring 8.4 x 4.4 x 20.9 c m. There is extensive subcutaneous edema which may be due to soft tissue laceration or infection. An actively extravasating vessel is not identified. IMPRESSION: Large anteromedial distal thigh and proximal lower leg hematoma, with extensive subcutane ous emphysema Reviewed, dictated and finalized at Location A. Reviewed, dictated and finalized at location A. IMPRESSION: Large anteromedial distal thigh and proximal lower leg hematoma, wi th extensive subcutaneous emphysema
--- NOTE | ~2024-02-18 | XR_ITS ---
XR chest 1V portable DATE: 02/18/2024 01:34 INDICATION: Chest pain TECHNIQUE: Portable upright AP chest on 02/18/2024 at 0127 hours COMPARISON: 02/10/2024 portable AP chest at 0256 hours FINDINGS: Left-sided AICD pacemaker device and 2 leads overlying right ventricle. Borderline heart size. Aortic arch calcification, mild aortic unfolding. There is mild infiltrate or atelectasis in the lower lung zones, left greater than right. No pleural effusion is noted. Pulmonary vascular redistribution may indicate mild pulmonary venous hypertension. Osteopenia. IMPRESSION: Bilateral lower lung infiltrate or atelectasis, left greater than right Reviewed, dictated and finalized at location A. IMPRESSION: Bilateral lower lung infiltrate or atelectasis, left greater than r ight
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
--- NOTE | 2024-02-18 00:43 | ECG_ITS ---
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 Measurements Intervals [place] Rate: 111 P: 0 [place]: 0 QRS: 93 QRSD: 133 T: -55 QT: 340 QTc: 464 Interpretive Statements ATRIAL FIBRILLATION WITH RAPID VENTRICULAR RESPONSE LEFT BUNDLE BRANCH BLOCK ABNORMAL ECG Compared to ECG 02/10/2024 06:05:51 INCREASED HEART RATE RESPONSE TO ATRIAL FIBRILLATION RATE, V RATEOTHERWISE NO DIFFERENCE Electronically Signed On 02-18-2024 08:10:49 CDT by Hair Augustin M.D.
--- NOTE | 2024-02-18 00:50 | PC.NURSE ---
Patient does present with blue spots on lifevest girdle. EDP MAK Rodarte notified.
[2024-02-18 01:15] LABS: INR 3.3; Prothrombin Time 34.1 Seconds (11.1-14.7)
[2024-02-18 01:16] LABS: Lactic Acid Reflex 3.2 mmol/L (0.7-2.0); Partial Thromboplastin Time 61.4 Seconds (22.3-36.8)
[2024-02-18] MEDS: SODIUM CHLORIDE 0.9% IV 1,000 ML 999 ML IV CONT ×2 (01:16→01:24)
[2024-02-18 01:20] LABS: Alanine Aminotransferase 30 U/L (6-50); Albumin Level 3.4 g/dL (3.5-5.1); Alkaline Phosphatase 104 U/L (38-126); Anion Gap 6 mmol/L (4-12); Aspartate Amino Transferase 48 U/L (17-59); Bilirubin,Total 2.6 mg/dL (0.2-1.3); Blood Urea Nitrogen 27 mg/dL (9-20); Calcium 8.6 mg/dL (8.4-10.2); Carbon Dioxide 23 mmol/L (22-30); Chloride 104 mmol/L (98-107); Estimated CRCL calculation 66 ml/min; Estimated Glomerular Filt Rate > 60; Glucose 98 mg/dL (65-110); Potassium 3.8 mmol/L (3.4-5.0); Sodium 133 mmol/L (137-145)
[2024-02-18 01:22] LABS: Basophils Percent Auto 0.2 % (0.2-1.2); Eosinophils Percent Auto 0.5 % (0-4.4); Hematocrit 31.5 % (42.0-52.0); Hemoglobin 10.2 g/dL (14.0-18.0); Immature Granulocyte Absolute 0.02 K/mm3 (0.00-0.031); Immature Granulocyte Percent A 0.4 % (0-0.5); Lymphocytes Absolute Auto 0.54 K/mm3 (0.9-3.2); Lymphocytes Percent Auto 9.8 % (18.3-44.2); Mean Corpuscular HGB Conc 32.4 g/dl (32-36); Mean Corpuscular Hemoglobin 32.7 pg (26-34); Mean Platelet Volume 10.4 fl (7.4-10.4); Monocytes Absolute Auto 0.6 K/mm3 (0.1-0.6); Monocytes Percent Auto 10.3 % (2.6-8.5); Neutrophils Absolute Auto 4.4 K/mm3 (1.3-6.7); Neutrophils Percent Auto 78.8 % (45.5-73.1); Platelet Count Result 253 k/mm3 (150-375); Red Blood Count 3.12 M/mm3 (4.6-6.20); Red Cell Distribution Width 17.6 % (11.5-14.5); White Blood Count 5.5 K/mm3 (4.5-10.0)
[2024-02-18 01:27] LABS: Troponin I < 0.012 ng/mL (0.000-0.034)
[2024-02-18 01:49] LABS: CRP 23.8 mg/dL (<1.0)
[2024-02-18 02:13] LABS: Erythrocyte Sedimentation Rate 134 mm/hr (0-20)
[2024-02-18] MEDS: MEROPENEM 1 GM/NS 100 ML 1 GM/100 ML BAG IVPB (02:42)
[2024-02-18] MEDS: CLINDAMYCIN 900 MG/D5W 50 ML 900 MG/50 ML PIGGYBACK 50 MG IVPB (03:07)
[2024-02-18 03:11] LABS: Appearance Urine Clear (Clear); Bacteria Urine None Seen /hpf; Bilirubin Urine 1+ (Negative); Blood Urine Negative (Negative); Color Urine Dark Yellow (Yellow); Glucose Urine UA Negative (Negative); Ketones Urine Negative (Negative); Leukocyte Esterase Ur Trace LEU/UL (Negative); Need Manual Microscopic Reviewed; Nitrate Urine Negative (Negative); Non Pathogenic Casts >20; Protein Urine 1+ mg/dL (Negative); Specific Grav Ur 1.023 (1.001-1.035); Squamous Epithelial Cell Urine Few /hpf (Few); WBC Urine 0-5 /hpf (0-3); pH Urine 5.5 (5.0-9.0)
[2024-02-18 03:15] LABS: Add Urine Microscopic? YES
--- NOTE | 2024-02-18 03:43 | ECG_ITS ---
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 Measurements Intervals [place] Rate: 114 P: 0 [place]: 0 QRS: 95 QRSD: 124 T: -68 QT: 310 QTc: 428 Interpretive Statements ATRIAL FIBRILLATION WITH RAPID VENTRICULAR RESPONSE WITH ABERRANT LEFT BUNDLE BRANCH BLOCK ABNORMAL ECG Compared to ECG 02/10/2024 06:05:51 NO DIFFERENCE Electronically Signed On 02-20-2024 07:55:36 CDT by Hair Augustin M.D.
[2024-02-18] MEDS: VANCOMYCIN 1,250 MG/NS 250 ML 1,250 MG/250 ML BAG 166.67 MG IVPB (04:01)
[2024-02-18 04:02] LABS: Reflex Lactic Acid Yes or No Add Lactic
[2024-02-18 04:16] LABS: Troponin I < 0.012 ng/mL (0.000-0.034)
== END 2024-02-18 05:26 | disposition short-term general hospital (02) ==
PROVIDERS: Emergency Provider Physician Assistant
DX: S80.11XA Contusion of right lower leg, initial encounter (principal); R07.9 Chest pain, unspecified; L03.116 Cellulitis of left lower limb; I48.91 Unspecified atrial fibrillation; I50.9 Heart failure, unspecified; Z95.810 Presence of automatic (implantable) cardiac defibrillator; Z79.01 Long term (current) use of anticoagulants; V03.00XA Pedestrian on foot injured in collision with car, pick-up truck or van in nontraffic accident, initial encounter
CPT/HCPCS: 36415; 71045; 73701; 80053; 81001; 83605; 84484; 85025; 85610; 85652; 85730; 86140; 87040; 93005; 96361; 96365; 96367; 99285; J2185; J3370; J7030; Q9967